=== PATIENT | male | born 1975 | race Hispanic/Latino ===

== ENCOUNTER 2018-02-23 08:22 | Observation (INO) | payer BC, SELFPAY ==
[2018-02-23 08:53] LABS: #Eosinphils 0.1 thou/uL (0.0-0.7); #Lymphocytes 1.4 thou/uL (1.20-3.40); #Monocytes 0.4 thou/uL (0.11-0.59); #Neutrophils 3.3 thou/uL (1.40-6.50); %Basophils 0.4 % (0.0-1.0); %Eosinophils 2.6 % (0.0-10.0); %Monocytes 7.6 % (0.0-10.0); %Neutrophils 62.5 % (42.0-75.0); Hemoglobin 10.9 g/dL (14.0-18.0); Mean Corpuscular HGB CONC 31.6 g/dL (32.0-36.0); Mean Corpuscular Volume 85.3 fL (78.0-98.0); Mean Platelet Volume 9.5 fL (7.4-10.4); Platelet Count 170 thou/uL (130-400); RBC Distribution Width 13.4 % (11.5-14.5); Red Blood Cell (RBC) Count 4.06 mill/uL (4.70-6.10); White Blood Cell (WBC) Count 5.3 thou/uL (4.8-10.8)
[2018-02-23 09:24] LABS: ALT (SGPT) 9 U/L (8-55); AST (SGOT) 11 U/L (5-34); Albumin 3.8 g/dL (3.5-5.0); Alkaline Phosphatase 60 U/L (40-150); Anion Gap 14 mmol/L (10-20); BUN (Urea Nitrogen) 11 mg/dL (8.9-20.6); Bilirubin, Total 0.6 mg/dL (0.2-1.2); CK (CPK) 129 U/L (30-200); Calc. Creatinine Clearance 0 mL/min (70-130); Calcium 9.4 mg/dL (7.8-10.44); Carbon Dioxide 26 mmol/L (22-29); Chloride 106 mmol/L (98-107); Estimated GFR-MDRD 85; Globulin 3.2 g/dL (2.4-3.5); Glucose 156 mg/dL (70-105); Potassium 3.3 mmol/L (3.5-5.1); Sodium 143 mmol/L (136-145)
[2018-02-23 09:52] LABS: CKMB 1.9 ng/mL (0-6.6); Troponin I 0.025 ng/mL (< 0.028)
--- NOTE | 2018-02-23 09:55 | RAD ---
CHEST ONE VIEW PORTABLE: History: 42-year-old male with history of dyspnea, weakness, lightheadedness and shortness of breath. FINDINGS: Monitor leads overlie the chest. Less than optimal inspiration with some bilateral vascular congestio n without overt edema, confluent pneumonia, or pleural effusion. IMPRESSION: Bilateral vascular congestion without acute process. No old studies. POS: [facility]
[2018-02-23] MEDS ORDERED: Furosemide 40 MG/4 ML VIAL ONE (10:26)
[2018-02-23 12:35] VITALS: BMI 33.7
[2018-02-23 12:45] LABS: Troponin I 0.036 ng/mL (< 0.028)
[2018-02-23] MEDS ORDERED: Acetaminophen 325 MG TAB PO PRN (12:55)
[2018-02-23] MEDS ORDERED: Ondansetron PF 4 MG/2 ML Vial IVP PRN (12:55)
[2018-02-23] MEDS ORDERED: Ondansetron ODT 4 MG TAB SL PRN (12:55)
[2018-02-23] MEDS ORDERED: Senokot S 8.6-50 MG TAB PO PRN (13:36)
[2018-02-23 15:10] LABS: Digoxin 0.24 ng/mL (0.8-2.0)
[2018-02-23 15:13] LABS: Troponin I 0.035 ng/mL (< 0.028)
--- NOTE | 2018-02-23 17:10 | HP ---
DATE OF ADMISSION: 02/23/2018 PRIMARY CARE PHYSICIAN: Razia Christine. TENSILE TESTER: Dr. Cuenca. CODE STATUS: FULL. CHIEF COMPLAINT: Weakness and lightheadedness that started yesterday. HISTORY OF PRESENT ILLNESS: Patient is a 42-year-old man who presents to the ED for weakness, lightheadedness and shortness of breath since yesterday morning. Reports he woke up yesterday, not feeling well. Reports symptoms worsened today. Reports dry cough. Denies any chest pain today. Denies any presyncope or syncope. Does report a history of congestive heart failure. An echocardiogram was performed in Dr. Cuenca's office last Friday. The patient had an ejection fraction of 10% at that time. The patient reports having CHF for the last 7 years from a possible viral illness. EKG in ED with a rate of 64 shows a left anterior fascicular block, nonspecific T-wave abnormalities, ventricular hypertrophy, QRS widening. The patient will be admitted for observation and further management. REVIEW OF SYSTEMS: CONSTITUTIONAL: The patient denies chills, denies fever. Reports weakness. Denies any weight loss. EYES: Denies eye pain, denies eye redness. Denies photophobia. ENT: Denies rhinorrhea, sinus pain. Denies sore throat or stridor. CARDIOVASCULAR: Denies chest pain and denies diaphoresis. Denies dyspnea on exertion. Denies edema. RESPIRATORY: Reports cough, nonproductive. Reports shortness of breath. Denies sputum. GASTROINTESTINAL: Denies abdominal pain, nausea, vomiting, constipation or diarrhea. MUSCULOSKELETAL: Denies arthralgias, back pain, fall injury, joint pain or redness. SKIN: Denies skin changes. Denies lesions. NEUROLOGIC: Denies focal weakness or symptoms. Denies headache, sensory changes. PSYCHIATRIC: Denies alcohol abuse, anxiety or depression. PHYSICAL EXAMINATION: VITAL SIGNS: Blood pressure 108/65, pulse is 60, respirations are 18, temperature 98.6, 99% on room air pulse ox. CONSTITUTIONAL: Alert and oriented x3. HEAD: Atraumatic, normocephalic. EYES: Eyelids are normal to inspection. Pupils are equally round and reactive to light. Extraocular muscles are intact. ENT: Pharynx exam is normal. Mucous membranes are moist. NECK: Normal range of motion. Trachea is midline. No JVD. RESPIRATORY: Breath sounds are clear. No rales, no rhonchi. CARDIOVASCULAR: Normal rate and rhythm. No bruits. Femoral pulses are normal. Pedal pulses are normal. ABDOMEN: Male. Bowel sounds are normal, no distention, no tenderness. BACK: No CVA tenderness. Normal range of motion. EXTREMITIES: Upper extremity range of motion is normal. Pulses are intact. Lower extremity, range of motion is normal. Sensation is intact. Pedal pulses normal, no edema is noted. NEUROLOGICAL: Patient is oriented to person, place and time. Speech is normal. Cranial nerves are intact. Deep tendon reflexes are normal. No focal deficits. No sensory deficits are noted. SKIN: Normal, dry, and normal in color. PAST MEDICAL HISTORY: Includes CHF for the last 7 years. He is followed by Dr. Cuenca in [place]. PAST SURGICAL HISTORY: Left wrist surgery several years ago with an external fixator. SOCIAL HISTORY: Patient is a former smoker, reports he quit 10 years ago. Drinks socially. Denies any drug use. ALLERGIES: None. MEDICATIONS: Carvedilol 25 mg daily, spironolactone 25 mg b.i.d., digoxin 125 mcg daily, Lasix 20-40 mg p.o. daily and Entresto 97/103 po b.i.d., aspirin 81 mg daily. FAMILY HISTORY: Reports mom is a diabetic. IMAGING DATA AND LABORATORY DATA: Chest x-ray reports mild congestive heart failure. 1st troponin is negative. D-dimer is negative at 0.39. CK is 129. Sodium 143, potassium 3.3, chloride 106, carbon dioxide 26, gap is 14, BUN is 11 , creatinine is 0.96, GFR is 85, glucose 156. BNP is 257. TSH 1.64. White blood cell count 5.3, hemoglobin is 10.9, hematocrit is 34.6, platelets 170. PLAN AND ASSESSMENT: Congestive heart failure exacerbation. We will diurese and order a Cardiology consult. Hospital course will depend on clinical findings. [facility]
[2018-02-23] MEDS: Famotidine 20 MG TAB PO SCH (20:52)
[2018-02-23] MEDS: Digoxin 0.125 MG TAB PO SCH (20:52)
[2018-02-23] MEDS: Sacubitril 49 MG/Valsartan 51 MG TABLET PO SCH (20:52)
[2018-02-23] MEDS: Spironolactone 25 MG TAB PO SCH (20:53)
[2018-02-23] MEDS ORDERED: Non-Formulary Item 1 EACH (Sacubitril/Valsartan [Entresto 97 Mg-103 Mg Tablet] 1 TAB) PO SCH (21:00)
[2018-02-23] MEDS ORDERED: Sacubitril 49 MG/Valsartan 51 MG TABLET PO SCH (21:00)
--- NOTE | 2018-02-24 04:21 | CON ---
DATE OF CONSULTATION: 02/23/2018 HISTORY OF PRESENT ILLNESS: This patient is a 42-year-old [place] male with longstanding history of cardiomyopathy. He has been followed by Dr. Cuenca for many years. He states he has a cardiomyopathy for approximately 7 years. His most recent echocardiogram was last week and ejection fraction was approximately 10% at that time. He now is admitted complaining of increased weakness, lightheadedness, and shortness of breath. He denies any chest discomfort. Since being admitted carvedilol 25 mg b.i.d. has been held because his pressure is low. PAST MEDICAL HISTORY: Congestive heart failure 7 years, followed by Dr. Cuenca. OPERATIONS: Left wrist surgery. MEDICATIONS: Carvedilol 25 mg b.i.d., spironolactone 25 b.i.d., digoxin 125 mcg b.i.d., Lasix 40 mg daily, Entresto 97/103 b.i.d., and aspirin 81 daily. ALLERGIES: None. SOCIAL HISTORY: He stopped smoking 10 years ago. He drinks socially. FAMILY HISTORY: Unremarkable. REVIEW OF SYSTEMS: Twelve-point review of systems otherwise unremarkable. PHYSICAL EXAMINATION: VITAL SIGNS: Blood pressure 104/66, pulse is 68. HEENT: PERRL. NECK: Supple. CHEST: Clear. CARDIAC: S1 and S2 are normal without any S3, S4 or murmurs. ABDOMEN: Normal bowel sounds, no tenderness. EXTREMITIES: Revealed no clubbing, cyanosis, or edema. NEUROLOGIC: Grossly intact. SKIN: Warm and dry. LABORATORY DATA: EKG reveals normal sinus rhythm with possible left ventricular hypertrophy. Chest x-ray reveals cardiomegaly with bilateral vascular congestion. Sodium 143, potassium 3.3, chloride 106, carbon dioxide 26 , BUN 11, creatinine 0.96. Troponin I 0.036, BNP 257.2. TSH is normal. Digoxin 0.24. IMPRESSION: 1. Acute on chronic systolic heart failure. 2. Symptoms of weakness and lightheadedness, probably related to hypotension. 3. History of hypertension. 4. Former smoker. PLAN: Echocardiogram will be requested from Dr. Cuenca's office as well as [facility] for documentation of the length of time that he has had a low ejection fraction. Consideration should be given to ICD placement. He may benefit from biventricular ICD with a widened QRS. With his current blood pressure, his usual dose of Entresto and carvedilol will be cut in half and his blood pressure followed closely. Certainly, his long-term prognosis is poor. [facility]TDD
[2018-02-24 05:19] LABS: #Eosinphils 0.1 thou/uL (0.0-0.7); #Lymphocytes 1.3 thou/uL (1.20-3.40); #Monocytes 0.5 thou/uL (0.11-0.59); #Neutrophils 5.5 thou/uL (1.40-6.50); %Basophils 0.1 % (0.0-1.0); %Eosinophils 1.2 % (0.0-10.0); %Lymphocytes 17.1 % (21.0-51.0); %Monocytes 6.9 % (0.0-10.0); %Neutrophils 74.7 % (42.0-75.0); Hemoglobin 10.1 g/dL (14.0-18.0); Mean Corpuscular Hemoglobin 27.3 pg (27.0-31.0); Mean Corpuscular Volume 85.3 fL (78.0-98.0); Mean Platelet Volume 8.9 fL (7.4-10.4); Platelet Count 152 thou/uL (130-400); RBC Distribution Width 13.5 % (11.5-14.5); White Blood Cell (WBC) Count 7.3 thou/uL (4.8-10.8)
[2018-02-24 05:21] LABS: ALT (SGPT) Less than 7 U/L (8-55); AST (SGOT) 9 U/L (5-34); Albumin 3.5 g/dL (3.5-5.0); Alkaline Phosphatase 56 U/L (40-150); Anion Gap 8 mmol/L (10-20); BUN (Urea Nitrogen) 18 mg/dL (8.9-20.6); Bilirubin, Total 0.5 mg/dL (0.2-1.2); Calc. Creatinine Clearance 130 mL/min (70-130); Carbon Dioxide 30 mmol/L (22-29); Cardiac Risk 4.9 (Less than 4.5); Chloride 107 mmol/L (98-107); Cholesterol 117 mg/dl (< 200 Desired); Estimated GFR-MDRD 79; Glucose 105 mg/dL (70-105); HDL Cholesterol 24 mg/dL (>60 Neg Risk); LDL Cholesterol, Calculated 66 mg/dL; Potassium 3.1 mmol/L (3.5-5.1); Protein, Total 6.5 g/dL (6.0-8.3); Sodium 142 mmol/L (136-145); Triglycerides 134 mg/dL (Less than 150)
[2018-02-24] MEDS: Digoxin 0.125 MG TAB PO SCH ×2 (12:53→20:23)
[2018-02-24] MEDS: Famotidine 20 MG TAB PO SCH ×2 (12:53→20:23)
[2018-02-24] MEDS: Carvedilol 6.25 MG TAB PO SCH ×2 (12:53→15:48)
[2018-02-24] MEDS: Aspirin 81 mg Enteric Coated Tablet PO SCH ×2 (12:53→15:47)
[2018-02-24] MEDS: Spironolactone 25 MG TAB PO SCH ×2 (12:54→20:24)
[2018-02-24] MEDS: Sacubitril 49 MG/Valsartan 51 MG TABLET PO SCH (14:00)
[2018-02-24] MEDS ORDERED: Potassium Chloride 20 MEQ TAB PO SCH (14:45)
--- NOTE | 2018-02-24 15:23 | PDOC.EVN ---
Event Note - Event Note Event Note: patient interviewed and examined, discussed with Kimberly Larson. agree with management and plan
[2018-02-24] MEDS: Furosemide 40 MG TAB PO SCH (15:48)
--- NOTE | 2018-02-24 15:50 | PDOC.PN ---
- Subjective Encounter Start Date: 02/24/18 Encounter Start Time: 14:00 Subjective: f/u with weakness, EF 10% - Objective Resuscitation Status: Resuscitation Status FULL:Full Resuscitation Vital Signs & Weight: Vital Signs (12 hours) Temp Pulse Resp BP Pulse Ox 02/24/18 12:53 57 L 02/24/18 11:14 98.4 F 57 L 20 91/57 L 96 02/24/18 06:58 98.0 F 63 20 96/58 L 95 02/24/18 04:23 98.5 F 79 16 100/61 98 Weight Weight 99.427 kg I&O: 02/23/18 02/24/18 02/25/18 06:59 06:59 06:59 Intake Total 660 Output Total 450 350 Balance 210 -350 Result Diagrams: 02/24/18 04:29 02/24/18 04:29 Phys Exam - Physical Examination HEENT: PERRLA, moist MMs Neck: no nodes, no JVD Respiratory: no wheezing, no rales, clear to auscultation bilateral Cardiovascular: RRR Gastrointestinal: soft, non-tender Musculoskeletal: no edema Neurological: non-focal, normal sensation Lymphatic: no nodes Psychiatric: normal affect, A&O x 3 Skin: no rash, normal turgor Dx/Plan (1) Heart failure Code(s): I50.9 - HEART FAILURE, UNSPECIFIED Status: Chronic Qualifiers: Heart failure type: diastolic Plan: EP consult - Plan cont current plan of care -: Dr. Billingsley saw patient yesterday, requested EP to be consulted -: Will hold BP meds as pressure has been on the lower side today -: Will await recommendation from Dr. Velazquez * .
--- NOTE | 2018-02-24 18:31 | CON ---
DATE OF CONSULTATION: 02/24/2018 ELECTROPHYSIOLOGY CONSULTATION REFERRING PHYSICIAN: Mic Billingsley M.D. REASON FOR CONSULTATION: Chronic systolic heart failure and dilated cardiomyopathy. STAGE DIRECTOR: Rinku Cuenca M.D. PRIMARY CARE PHYSICIAN: Razia Christine. HISTORY OF PRESENT ILLNESS: Mr. Rojas is a pleasant 42-year-old gentleman who presented to [facility] reporting weakness, lightheadedness and shortness of breath since the morning prior. He had woken up not feeling well and the symptoms progressively worsened until he ultimately went to the emergency room for further evaluation. He has a longstanding history of dilated cardiomyopathy and chronic systolic heart failure that was initially diagnosed in [address] Cuenca. Over time, his heart failure has worsened and he is currently in NYHA functional class 3 status. His treatment regimen for a long time has consisted of a diuretic, digoxin, Coreg and Entresto. He faithfully takes his medications, but has had progressive dyspnea and heart failure symptoms. He had an echocardiogram performed in 11/2016 that showed dilated cardiomyopathy with a reduced ejection fraction of less than 20% with a severely dilated left ventricle and severe global hypokinesis. He recently had a repeat echocardiogram by Dr. Cuenca's office and these records are also available in the chart revealing an even further reduced LV systolic function of approximately 10%. There is also severely dilated left atrium with a patent foramen ovale present and moderate mitral regurgitation. It has been a longstanding recommendation for him by the records that he undergo ICD placement. Currently, Mr. Rojas is feeling fairly well. He continues to experience some shortness of breath, but reports that this has lessened since he has been admitted for observation. He has been ambulating in his room and is tolerating this without difficulty. He denies any heart racing, palpitations, chest pain, pressure, syncope, near syncope, stroke or stroke like symptoms. REVIEW OF SYSTEMS: Constitutional: Negative for fevers, chills or unintentional weight loss. Positive for some fatigue. Cardiovascular: Negative for chest pain or pressure, syncope, near syncope, stroke or stroke like symptoms, heart racing or palpitations. Also negative for lower extremity edema. Respiratory: Positive for chronic shortness of breath that is recently worsened, but now lessening. Negative for cough. Negative for chronic cough. Gastrointestinal: Negative for nausea, vomiting, diarrhea or blood in stool. Genitourinary: Negative for frequency, hesitancy or burning with urination. Neurologic: Negative for dizziness, headaches, paresthesias, tingling or focal weaknesses. PAST MEDICAL HISTORY: 1. Congestive systolic heart failure diagnosed in 08/2011. Echocardiogram on 11/2016 showed dilated cardiomyopathy and ejection fraction of less than 20%, last week documented at 10% by repeat echocardiogram. 2. Hyperlipidemia. 3. Hypertension. 4. Aortic regurgitation, mild to moderate. 5. Mitral regurgitation, moderate. 6. Pulmonary hypertension. 7. Iron deficiency anemia. FAMILY HISTORY: Negative for sudden cardiac or early onset coronary artery disease. SOCIAL HISTORY: , but has supportive family involved. History of tobacco habituation, but quit in 07/2011. Negative for alcohol or illicit drug use. ALLERGIES: DARIAN INHIBITORS cause cough, but no true medication allergies. HOME MEDICATIONS: Include Entresto 97/103 mg tablet 1 p.o. b.i.d., Coreg 25 mg p.o. b.i.d., digoxin 250 mcg half a tab p.o. b.i.d., furosemide 40 mg 1 tab p.o. daily, spironolactone 25 mg p.o. daily, aspirin 81 mg p.o. daily, ferrous sulfate 325 mg p.o. daily, magnesium oxide 400 mg p.o. daily. PHYSICAL EXAMINATION: VITAL SIGNS: Most recent vital signs, temperature 98.4, pulse 63, blood pressure 96/58, respirations 20, oxygen is 95% on room air. GENERAL: This is a well-appearing, well-groomed gentleman, in no apparent distress. He is resting comfortably in bed. Speech is clear. His affect is appropriate. He is normocephalic, atraumatic. Sclerae are anicteric. EOMs are intact. Oral mucosa is moist and pink. NECK: Supple without jugular venous distention. Thyroid is not palpable. CHEST: Clear to auscultation bilaterally without wheezes, crackles or rhonchi. CARDIOVASCULAR: His heart rate is regularly regular with a crisp S1, S2. There is an S3 gallop noted. PMI is minimally palpable. ABDOMEN: Soft, nontender without palpable masses and hepatojugular reflux is negative. EXTREMITIES: Warm and dry to touch without clubbing, cyanosis or edema. NEUROLOGIC: Grossly intact with cranial nerves II-XII and exam is nonfocal. Gait was not assessed. DATABASE: Recent laboratory, hematology is reviewed and unremarkable. Chemistry, potassium 3.1, creatinine 1.03. AST and ALT are within normal limits. BNP is 257 on the date of admission. TSH 1.6. Telemetry and EKGs were all personally reviewed and reflect sinus rhythm with left anterior fascicular block and frequent PVCs and occasional PACs. QRS is approximately 140 milliseconds in duration. A 12-lead upon admission showed normal sinus rhythm at a rate of 64 beats per minute and a QRS of 125 milliseconds. No QTC prolongation. Echocardiogram report received, performed 02/17/2018, 1. Severely dilated left atrium. 2. Patent foramen ovale present. 3. Severely dilated left ventricle with marked global hypokinesis. 4. Moderate mitral regurgitation, ejection fraction 10%, pulmonary artery pressure 38 mmHg. Diastolic inflow pattern consistent with restrictive filling. IMPRESSION: 1. Longstanding chronic congestive systolic heart failure, dilated cardiomyopathy diagnosed in 2011 despite optimal medical management. 2. Shortness of breath. 3. Left anterior fascicular block. 4. Hypokalemia. RECOMMENDATIONS: It has been a long discussion with Mr. Rojas and his family present regarding heart failure and the purposes of the ICD. His cardiomyopathy has been longstanding since 2011. He is faithful with his medications and we now see even worsening ejection fraction in spite of optimal medical management. On top of that, we see left anterior fascicular block. At this point, my recommendation is to move forward with a biventricular ICD implantation during his hospital stay if possible. Risks associated with ICD implant include pain, bruising, swelling, infection at the implant site, pneumothorax, damage to the blood vessel, perforation of the heart, pericardial effusion, need for a chest tube insertion or pericardiocentesis. The patient voices understanding and wishes to move forward with device implant at the earliest convenience. Anticipate likely tomorrow for device implantation. We will keep him n.p.o. after midnight. All questions were answered. [facility]
[2018-02-24] MEDS: Sacubitril 24.5 MG/Valsartan 25.5 MG TABLET PO SCH (20:32)
[2018-02-25 04:25] LABS: #Eosinphils 0.1 thou/uL (0.0-0.7); #Lymphocytes 1.4 thou/uL (1.20-3.40); #Monocytes 0.4 thou/uL (0.11-0.59); #Neutrophils 2.9 thou/uL (1.40-6.50); %Basophils 0.1 % (0.0-1.0); %Eosinophils 2.7 % (0.0-10.0); %Lymphocytes 28.5 % (21.0-51.0); %Neutrophils 59.8 % (42.0-75.0); Hemoglobin 9.6 g/dL (14.0-18.0); Mean Corpuscular HGB CONC 30.8 g/dL (32.0-36.0); Mean Corpuscular Hemoglobin 26.4 pg (27.0-31.0); Mean Corpuscular Volume 85.6 fL (78.0-98.0); Mean Platelet Volume 9.2 fL (7.4-10.4); Platelet Count 148 thou/uL (130-400); RBC Distribution Width 13.6 % (11.5-14.5); Red Blood Cell (RBC) Count 3.64 mill/uL (4.70-6.10); White Blood Cell (WBC) Count 4.9 thou/uL (4.8-10.8)
[2018-02-25 04:51] LABS: ALT (SGPT) Less than 7 U/L (8-55); AST (SGOT) 7 U/L (5-34); Albumin 3.4 g/dL (3.5-5.0); Alkaline Phosphatase 54 U/L (40-150); Anion Gap 10 mmol/L (10-20); BUN (Urea Nitrogen) 20 mg/dL (8.9-20.6); Bilirubin, Total 0.9 mg/dL (0.2-1.2); Calc. Creatinine Clearance 123 mL/min (70-130); Calcium 8.9 mg/dL (7.8-10.44); Carbon Dioxide 27 mmol/L (22-29); Chloride 108 mmol/L (98-107); Estimated GFR-MDRD 75; Glucose 88 mg/dL (70-105); Potassium 3.3 mmol/L (3.5-5.1); Protein, Total 6.4 g/dL (6.0-8.3); Sodium 142 mmol/L (136-145)
[2018-02-25] MEDS: Digoxin 0.125 MG TAB PO SCH ×2 (08:37→20:23)
[2018-02-25] MEDS: Famotidine 20 MG TAB PO SCH ×2 (08:37→20:22)
[2018-02-25] MEDS: Furosemide 40 MG TAB PO SCH (08:38)
[2018-02-25] MEDS: Sacubitril 24.5 MG/Valsartan 25.5 MG TABLET PO SCH ×2 (08:38→20:22)
[2018-02-25] MEDS: Spironolactone 25 MG TAB PO SCH ×2 (08:38→20:23)
[2018-02-25] MEDS: Carvedilol 6.25 MG TAB PO SCH ×2 (08:38→18:17)
[2018-02-25] MEDS: Aspirin 81 mg Enteric Coated Tablet PO SCH (08:38)
--- NOTE | 2018-02-25 09:07 | PDOC.PN ---
- Subjective Encounter Start Date: 02/25/18 Encounter Start Time: 08:30 Subjective: f/u of worsening CHF, possible ICD placement - Objective Resuscitation Status: Resuscitation Status FULL:Full Resuscitation Vital Signs & Weight: Vital Signs (12 hours) Temp Pulse Resp BP BP BP Pulse Ox 02/25/18 08:38 116/56 L 02/25/18 08:37 66 02/25/18 07:16 98.3 F 66 16 116/56 L 95 02/25/18 03:58 98.3 F 71 15 94/61 94 L 02/24/18 23:36 98.5 F 60 21 H 102/61 96 Weight Weight 98.928 kg I&O: 02/24/18 02/25/18 02/26/18 06:59 06:59 06:59 Intake Total 660 1200 Output Total 450 350 Balance 210 850 Result Diagrams: 02/25/18 03:58 02/25/18 03:58 Phys Exam - Physical Examination Constitutional: NAD HEENT: PERRLA, moist MMs Neck: no nodes, no JVD, full ROM Respiratory: no wheezing, no rales, no rhonchi, clear to auscultation bilateral Cardiovascular: RRR, no significant murmur Gastrointestinal: soft, non-tender, no distention Musculoskeletal: no edema, pulses present Neurological: non-focal, normal sensation, moves all 4 limbs Lymphatic: no nodes Psychiatric: normal affect, A&O x 3 Skin: no rash, normal turgor, cap refill <2 seconds Dx/Plan (1) Heart failure Code(s): I50.9 - HEART FAILURE, UNSPECIFIED Status: Chronic Qualifiers: Heart failure type: diastolic - Plan -: Dr. Velazquez will take to Assisted Sales Representative for ICD placement today -: Will most likely keep overnight after placement -: Will continue to follow * .
[2018-02-25] MEDS ORDERED: PROPOFOL 200 MG/20 ML VIAL ONE (09:28)
[2018-02-25] MEDS ORDERED: Lidocaine 1% PF 5 ML VIAL ONE (09:28)
[2018-02-25] MEDS ORDERED: Ondansetron PF 4 MG/2 ML Vial ONE (09:28)
[2018-02-25] MEDS ORDERED: PHENYLEPHRINE-NS 100 MCG/ML 10 ML SYRINGE ONE (09:28)
[2018-02-25] MEDS ORDERED: Iopamidol 370 76% 50 ML VIAL FS ONE (10:44)
[2018-02-25] MEDS ORDERED: Lidocaine 1% (PF) 30 ML VIAL ONE (12:12)
[2018-02-25] MEDS ORDERED: CEFAZOLIN 2 GM/50 ML BAG ONE (12:12)
[2018-02-25] MEDS ORDERED: Midazolam HCl 2 mg/2 ml Vial ONE ×2 (14:46→16:38)
[2018-02-25] MEDS ORDERED: Fentanyl 100 MCG/2 ML VIAL ONE ×2 (14:51→16:17)
[2018-02-25] MEDS ORDERED: PROPOFOL 20 ML ONE (16:54)
[2018-02-25] MEDS ORDERED: Acetaminophen/Codeine 30-300mg Tablet PO PRN (18:00)
[2018-02-25] MEDS: Acetaminophen/Codeine 30-300mg Tablet PO PRN (23:01)
[2018-02-26 04:23] LABS: #Basophils 0.1 thou/uL (0.0-0.2); #Eosinphils 0.2 thou/uL (0.0-0.7); #Lymphocytes 0.8 thou/uL (1.20-3.40); #Monocytes 0.6 thou/uL (0.11-0.59); #Neutrophils 6.6 thou/uL (1.40-6.50); %Basophils 0.7 % (0.0-1.0); %Eosinophils 2.3 % (0.0-10.0); %Monocytes 7.6 % (0.0-10.0); %Neutrophils 79.4 % (42.0-75.0); Hemoglobin 10.5 g/dL (14.0-18.0); Mean Corpuscular HGB CONC 31.9 g/dL (32.0-36.0); Mean Corpuscular Hemoglobin 27.5 pg (27.0-31.0); Mean Corpuscular Volume 86.2 fL (78.0-98.0); Mean Platelet Volume 9.4 fL (7.4-10.4); Platelet Count 149 thou/uL (130-400); RBC Distribution Width 13.4 % (11.5-14.5); Red Blood Cell (RBC) Count 3.81 mill/uL (4.70-6.10); White Blood Cell (WBC) Count 8.3 thou/uL (4.8-10.8)
[2018-02-26] MEDS: Acetaminophen/Codeine 30-300mg Tablet PO PRN (04:36)
[2018-02-26 04:54] LABS: ALT (SGPT) Less than 7 U/L (8-55); AST (SGOT) 10 U/L (5-34); Albumin 3.7 g/dL (3.5-5.0); Alkaline Phosphatase 58 U/L (40-150); Anion Gap 14 mmol/L (10-20); BUN (Urea Nitrogen) 16 mg/dL (8.9-20.6); Bilirubin, Total 0.8 mg/dL (0.2-1.2); Calc. Creatinine Clearance 139 mL/min (70-130); Calcium 9.4 mg/dL (7.8-10.44); Carbon Dioxide 24 mmol/L (22-29); Chloride 109 mmol/L (98-107); Estimated GFR-MDRD 85; Globulin 3.2 g/dL (2.4-3.5); Glucose 102 mg/dL (70-105); Potassium 3.6 mmol/L (3.5-5.1); Protein, Total 6.9 g/dL (6.0-8.3); Sodium 143 mmol/L (136-145)
[2018-02-26] MEDS: Cephalexin 250 MG CAP PO SCH ×2 (05:28→12:15)
--- NOTE | 2018-02-26 08:08 | RAD ---
SINGLE VIEW OF THE CHEST: COMPARISON: 02/23/2018. HISTORY: Pacemaker placement. FINDINGS: A single view of the chest shows an enlarged cardiomediastinal silhouette. There is a left subclavia n pacemaker with its leads in the right atrium, right ventricle, and coronary sinus. There is no brianne dence of pneumothorax. IMPRESSION: 1. Status post pacemaker placement without evidence of complication. 2. Cardiomegaly. POS: C
[2018-02-26] MEDS: Famotidine 20 MG TAB PO SCH (09:28)
[2018-02-26] MEDS: Aspirin 81 mg Enteric Coated Tablet PO SCH (09:29)
[2018-02-26] MEDS: Digoxin 0.125 MG TAB PO SCH (09:29)
[2018-02-26] MEDS: Furosemide 40 MG TAB PO SCH (09:29)
[2018-02-26] MEDS: Spironolactone 25 MG TAB PO SCH (09:30)
[2018-02-26] MEDS: Sacubitril 24.5 MG/Valsartan 25.5 MG TABLET PO SCH (09:30)
[2018-02-26] MEDS: Carvedilol 6.25 MG TAB PO SCH (09:30)
[2018-02-26 11:57] VITALS: TEMP 98.4
--- NOTE | 2018-02-26 14:54 | PDOC.CTH ---
Cardiology Progress Note - Subjective EP progress note: Doing well since ICD implant yesterday. Minimal pain or swelling at incision. Preparing for DC home. No complaints today - Objective Vital Signs Temp Pulse Resp BP BP Pulse Ox 02/26/18 11:08 98.4 F 65 20 94/54 L 95 02/26/18 09:30 109/77 02/26/18 09:29 67 02/26/18 07:10 98.6 F 78 18 109/77 96 02/26/18 03:48 98.4 F 60 18 105/58 L 93 L Weight 219 lb 1.6 oz 02/25/18 02/26/18 02/27/18 06:59 06:59 06:59 Intake Total 1200 870 410 Output Total 350 Balance 850 870 410 - Physical Examination General/Neuro: alert & oriented x3, NAD Neck: carotid US brisk, no JVD present Lungs: unlabored respirations Heart: RRR Abdomen: NT/ND, soft - Telemetry Telemetry Rhythm: SR with PVC - Labs Result Diagrams: 02/26/18 03:58 02/26/18 03:58 Troponin/CKMB CK-MB (CK-2) 1.9 ng/mL (0-6.6) 02/23/18 08:41 Troponin I 0.035 ng/mL (< 0.028) H 02/23/18 14:43 - Assessment/Plan 1. Chronic systolic heart failure -worsening EF 10% 2. BiV ICD implant 02/25/2018 -Med[employer]onic Viva s Quad -Stable check this AM 3. 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 Continue betablocker 4. Shortness of breath -acute issues resolved, back to baseline CXR stable this am. No pneumothorax. OK to DC by EP. Keflex 500mg QID x 7 days post device implant. Wound/device check with [facility] in 10-14 days.
[2018-02-26 15:00] VITALS: BP 100/58
--- NOTE | 2018-02-27 03:15 | DIS ---
DATE OF ADMISSION: 02/23/2018 DATE OF DISCHARGE: 02/26/2018 PRIMARY CARE PHYSICIAN: Dr. Christine. CONSULTANTS: Dr. Billingsley and Dr. Velazquez. PROCEDURE: The patient had biventricular implantable cardioverter-defibrillator implant on 8. DISCHARGE DIAGNOSES: 1. Acute on chronic systolic heart failure. 2. History of hypertension. 3. Former smoker. REVIEW OF SYSTEMS: A 12-point review of systems otherwise unremarkable. PHYSICAL EXAMINATION: VITAL SIGNS: Temperature 98.4, pulse is 60, respirations are 18, blood pressure is 105/58, pulse ox is 93 on room air. CONSTITUTIONAL: Denies chills or fever. Reports some residual weakness. Denies any weight loss. EYES: Denies any eye pain. Eyelids are normal to inspection. Pupils are equally round and reactive to light. Extraocular muscles are intact. HEAD: Atraumatic, normocephalic. ENT: Mucous membranes are moist. NECK: Normal range of motion. Trachea is midline. No JVD. RESPIRATORY: Breath sounds are clear. No rales or rhonchi. CARDIOVASCULAR: Normal rate and rhythm. Femoral pulses are normal. Pedal pulses are normal. ABDOMEN: Bowel sounds are normal. No distention, no tenderness. BACK: Normal range of motion. No CVA tenderness. EXTREMITIES: Normal range of motion and strength x4. NEUROLOGIC: The patient is oriented to person, place, and time. Speech is normal. No focal or sens ory deficits are noted. SKIN: Dry, normal in color. HOSPITAL COURSE: Mr. Rojas is a 42-year-old man who presented to the ED on 02/23/2018 for weakness , lightheadedness, and shortness of breath. Reports symptoms ongoing but worse the morning before ad mission. He reports he woke up the day before admission, not feeling well. Symptoms have worsened. He has a dry cough. Denies any chest pain. Denies any presyncope or syncope. He does have a long history of congestive heart failure, which has been progressive and echocardiogram was performed in Kimberly Cuenca's office, his primary mining machinery assembler, last Friday. The patient had an ejection fraction of 10% at that time. He reports congestive heart failure started 7 years ago from a possible viral illn ess. EKG in the ER was a rate of 64 beats per minute with a left anterior fascicular block, nonspeci fic T-wave abnormalities, ventricular hypertrophy, QRS widening. He consulted Dr. Billingsley who asked Dr. Velazquez to do a consult. Dr. Velazquez recommended an ICD placement, which was performed on 02/25/2018. The patient did well overnight after the ICD placement. Dr. Velazquez felt comfortable sending him home , so he was sent home with a prescription for Keflex. Dr. Billingsley recommended decreasing his hypert ensive medicines as they believe this might be the cause for some of his weakness and hypotension whi le in the hospital. HOME MEDICATIONS: As follows, aspirin 81 mg p.o. daily, digoxin 0.125 mg p.o. b.i.d., furosemide 40 mg p.o. daily, spironolactone 25 mg b.i.d. Coreg was changed to 6.25 mg b.i.d., Entresto was changed to 24.5-25.5 mg p.o. b.i.d., Keflex 500 mg q.6 hours x10 days was added to his home regimen. ALLERGIES: No known allergies. CONDITION: Stable. REFERRAL: Patient should make an appointment to see Dr. Christine within the next week. Follow up with Dr. Cuenca, his mining machinery assembler, within the next 2-3 days. Follow up within the next 10-[address] Arianne Velazquez for followup on the ICD placement.
== END 2018-02-26 15:37 | disposition home or self-care (01) ==
LOC: ERS 08:22 → 2SW 12:17
PROVIDERS: ADMIT Internal Medicine; ATTEND Internal Medicine
PROC: 0JH609Z Insertion of Cardiac Resynchronization Defibrillator Pulse Generator into Chest Subcutaneous Tissue and Fascia, Open Approach (ICD-10-PCS; principal; 2018-02-25)
PROC: 02H63KZ Insertion of Defibrillator Lead into Right Atrium, Percutaneous Approach (ICD-10-PCS; 2018-02-25)
PROC: 02HK3KZ Insertion of Defibrillator Lead into Right Ventricle, Percutaneous Approach (ICD-10-PCS; 2018-02-25)
PROC: 02H43KZ Insertion of Defibrillator Lead into Coronary Vein, Percutaneous Approach (ICD-10-PCS; 2018-02-25)
DX: I11.0 Hypertensive heart disease with heart failure (principal); I50.23 Acute on chronic systolic (congestive) heart failure; I42.0 Dilated cardiomyopathy; I27.20 Pulmonary hypertension, unspecified; E78.5 Hyperlipidemia, unspecified; I08.0 Rheumatic disorders of both mitral and aortic valves; D50.9 Iron deficiency anemia, unspecified; Z87.891 Personal history of nicotine dependence; Z79.82 Long term (current) use of aspirin; Z79.899 Other long term (current) drug therapy
CPT/HCPCS: 33225; 33230; 36005; 36415; 71045; 75820; 80053; 80061; 80162; 82550; 82553; 83880; 84443; 84484; 85025; 85379; 90471; 90686; 90732; 93005; 93640; 93798; 94760; 96365; 96366; 96374; 96375; C1730; C1777; C1882; C1898; C1900; G0008; G0009; G0378; J0690; J1940; J2001; J2250; J2405; J2704; J3010; J3490

== ENCOUNTER 2018-04-08 10:10 | Outpatient (CLI) | payer OTHER, SELFPAY ==
[2018-04-08 11:24] LABS: Hemoglobin 10.5 g/dL (14.0-18.0); Mean Corpuscular HGB CONC 32.5 g/dL (32.0-36.0); Mean Corpuscular Hemoglobin 27.3 pg (27.0-31.0); Mean Corpuscular Volume 83.9 fL (78.0-98.0); Platelet Count 156 thou/uL (130-400); Prothrombin Time 13.5 SEC (12.0-14.7); RBC Distribution Width 14.3 % (11.5-14.5); Red Blood Cell (RBC) Count 3.86 mill/uL (4.70-6.10); White Blood Cell (WBC) Count 5.8 thou/uL (4.8-10.8)
[2018-04-08 11:35] LABS: Anion Gap 11 mmol/L (10-20); BUN (Urea Nitrogen) 17 mg/dL (8.9-20.6); Calc. Creatinine Clearance 0 mL/min (70-130); Calcium 9.5 mg/dL (7.8-10.44); Carbon Dioxide 28 mmol/L (22-29); Chloride 106 mmol/L (98-107); Estimated GFR-MDRD 69; Glucose 114 mg/dL (70-105); Potassium 4.1 mmol/L (3.5-5.1); Sodium 141 mmol/L (136-145)
--- NOTE | 2018-04-08 17:58 | EKG ---
Test Reason : Blood Pressure : / mmHG Vent. Rate : 070 BPM Atrial Rate : 070 BPM P-R Int : 140 ms QRS Dur : 114 ms QT Int : 400 ms P-R-T Axes : 059 058 028 degrees QTc Int : 432 ms Normal sinus rhythm Incomplete left bundle branch block Nonspecific ST and T wave abnormality Abnormal ECG Confirmed by ROYAL OZUNA ([id number]) on 04/08/2018 5:58:22 PM Referred By: JOS Confirmed By:ROYAL OZUNA
== END 2018-04-08 10:11 | disposition home or self-care (01) ==
LOC: LABBT 10:10
PROVIDERS: ATTEND Internal Medicine Cardiovascular Disease
DX: Z01.818 Encounter for other preprocedural examination (principal); I50.9 Heart failure, unspecified
CPT/HCPCS: 80048; 85027; 85610; 85730; 93005; 93010

== ENCOUNTER 2018-04-16 05:54 | Day surgery (SDC) | payer OTHER, SELFPAY ==
[2018-04-08 10:23] VITALS: BMI 32.6
[2018-04-16] MEDS ORDERED: CEFAZOLIN 2 GM/50 ML BAG ONE (07:12)
[2018-04-16] MEDS ORDERED: KETAMINE 100 MG/ML (5ML VIAL) ONE (08:08)
[2018-04-16] MEDS ORDERED: Midazolam HCl 2 mg/2 ml Vial ONE (09:11)
--- NOTE | 2018-04-16 12:57 | RAD ---
CHEST 1 VIEW: HISTORY: Lead revision. COMPARISON: Radiograph 02/26/2015. FINDINGS: Three-lead AICD/pacer is present. Heart size is enlarged. Mild pulmonary venous congestion. No pne umothorax. IMPRESSION: Uncomplicated lead revision. POS: [facility]
[2018-04-16] MEDS ORDERED: Iopamidol 370 76% 50 ML VIAL FS ONE (16:48)
[2018-04-16] MEDS ORDERED: PROPOFOL 200 MG/20 ML VIAL ONE (21:07)
== END 2018-04-16 14:45 | disposition home or self-care (01) ==
LOC: CCL 05:54
PROVIDERS: ATTEND Internal Medicine Cardiovascular Disease
PROC: 02PA3MZ Removal of Cardiac Lead from Heart, Percutaneous Approach (ICD-10-PCS; principal; 2018-04-16)
PROC: 02H63JZ Insertion of Pacemaker Lead into Right Atrium, Percutaneous Approach (ICD-10-PCS; principal; 2018-04-16)
DX: T82.120A Displacement of cardiac electrode, initial encounter (principal); I44.7 Left bundle-branch block, unspecified; I11.0 Hypertensive heart disease with heart failure; I50.22 Chronic systolic (congestive) heart failure; I27.20 Pulmonary hypertension, unspecified; I08.0 Rheumatic disorders of both mitral and aortic valves; I42.0 Dilated cardiomyopathy; E78.5 Hyperlipidemia, unspecified; Z79.82 Long term (current) use of aspirin; Z79.899 Other long term (current) drug therapy; Z88.8 Allergy status to other drugs, medicaments and biological substances
CPT/HCPCS: 33215; 33216; 33244; 36005; 71045; 75820; 93642; C1898; J2250; J2704; J3490

== ENCOUNTER 2018-07-03 23:14 | Observation (INO) | payer OTHER ==
[2018-07-03 23:56] LABS: Bicarbonate (HCO3v) 22.4 mmol/L (22.0-28.0); CO2 Tension (PvCO2) 35.8 mmHg (40.0-50.0); Calcium, Ionized 1.16 mmol/L (See Comments:); Chloride 109 mmol/L (98-107); Hemoglobin - Calc 9.9 g/dL (14.0-18.0); O2 Tension (PvO2) 40.8 mmHg (35.0-45.0); Potassium 3.3 mmol/L (3.5-5.1); Sodium 142 mmol/L (138-145); T. Carbon Dioxide 23.5 mmol/L (22.0-28.0); pH (Venous) 7.404 (7.320-7.430); vO2 Saturation-calc 76.6 % (60.0-85.0)
[2018-07-04 00:05] LABS: #Eosinphils 0.1 thou/uL (0.0-0.7); #Lymphocytes 1.6 thou/uL (1.20-3.40); #Monocytes 0.6 thou/uL (0.11-0.59); #Neutrophils 6.4 thou/uL (1.40-6.50); %Basophils 0.5 % (0.0-1.0); %Eosinophils 1.2 % (0.0-10.0); %Lymphocytes 17.9 % (21.0-51.0); %Monocytes 6.8 % (0.0-10.0); %Neutrophils 73.7 % (42.0-75.0); Hemoglobin 8.6 g/dL (14.0-18.0); Mean Corpuscular HGB CONC 30.5 g/dL (32.0-36.0); Mean Corpuscular Hemoglobin 23.9 pg (27.0-31.0); Mean Corpuscular Volume 78.4 fL (78.0-98.0); Platelet Count 197 thou/uL (130-400); RBC Distribution Width 15.5 % (11.5-14.5); Red Blood Cell (RBC) Count 3.58 mill/uL (4.70-6.10); White Blood Cell (WBC) Count 8.7 thou/uL (4.8-10.8)
[2018-07-04 00:25] LABS: ALT (SGPT) 21 U/L (8-55); AST (SGOT) 18 U/L (5-34); Albumin 3.9 g/dL (3.5-5.0); Alkaline Phosphatase 76 U/L (40-150); Anion Gap 14 mmol/L (10-20); BUN (Urea Nitrogen) 24 mg/dL (8.9-20.6); Calc. Creatinine Clearance 0 mL/min (70-130); Carbon Dioxide 21 mmol/L (22-29); Chloride 108 mmol/L (98-107); Estimated GFR-MDRD 55; Globulin 2.8 g/dL (2.4-3.5); Glucose 113 mg/dL (70-105); Lipase 23 U/L (8-78); Potassium 3.6 mmol/L (3.5-5.1); Protein, Total 6.7 g/dL (6.0-8.3); Sodium 139 mmol/L (136-145)
[2018-07-04] MEDS ORDERED: Furosemide 40 MG/4 ML VIAL ONE (01:33)
[2018-07-04 04:33] LABS: Bilirubin Negative (Negative); Blood, Urine Trace (Negative); Clarity CLEAR (Clear); Glucose, Urine (Dipstick) Negative (Negative); Leukocyte Negative (Negative); Nitrite Negative (Negative); Protein, Urine (Dipstick) Negative (Neg-Trace); Urobilinogen 0.2 mg/dL (0.2-1.0)
[2018-07-04 04:34] LABS: Bacteria/HPF None Seen HPF (None Seen); Hyaline Casts/LPF 0-3 HYALINE CAST LPF (0-3 Hyaline); Pathc Cast-AUWi Flag 0.13 (0-2.49); RBC/HPF 0-3 HPF (0-3); Squamous Epithelial None Seen HPF (0-3); WBC/HPF None Seen HPF (0-3)
[2018-07-04 04:36] LABS: Digoxin Less than 0.15 ng/mL (0.8-2.0)
[2018-07-04] MEDS ORDERED: Acetaminophen 325 MG TAB PO PRN (05:00)
[2018-07-04 05:39] LABS: CKMB 1.2 ng/mL (0-6.6)
[2018-07-04 06:24] VITALS: BMI 34.0
--- NOTE | 2018-07-04 06:38 | HP ---
CHIEF COMPLAINT: Shortness of breath. HISTORY OF PRESENT ILLNESS: This patient is a 43-year-old male who has a longstanding history of severe cardiomyopathy, presumably due to a viral illness. This has been present going back to around 2010 and 2011. The patient's most recent echocardiogram revealed ejection fraction of about 10%. The patient is followed primarily by Dr. Cuenca. He is on Lasix and spironolactone, takes that routinely. He also takes digoxin, but apparently has been out of that for time. He does follow a careful diet and does not use salt and watches his sodium. He has been taking his diuretics, but reports that there are times when they tend to work less well, over the last few days that has been the case and he developed some increasing shortness of breath. On this day, the patient got up to take shower and simply leaning his head back to rinse his hair, he felt somewhat lightheaded and felt like that was time that he needed to come into the emergency room for evaluation. Currently, the patient reports that he is feeling somewhat better after having received Lasix in the emergency department, he has received 40 mg IV and DuoNeb as well. PAST MEDICAL HISTORY: As noted. The patient has a history of congestive heart failure for about 7 years with EF of around 10%. He had a left bundle branch block and had placement of a biventricular pacer defibrillator in February of 2018. He subsequently sneezed and had some type of wire detachment, subsequently had to have a revision of the wire. The patient notably has relatively low blood pressure, sometimes limiting his medications. PAST SURGICAL HISTORY: Left wrist surgery, requiring external fixator several years ago. FAMILY HISTORY: Diabetes in his mother. SOCIAL HISTORY: Former smoker, quit over 10 years ago. Drinks socially. Denies drug use. ALLERGIES: NONE. MEDICATIONS: 1. Coreg 25 mg p.o. b.i.d. 2. Spironolactone 25 mg b.i.d. 3. Digoxin 0.125 p.o. b.i.d. 4. Aspirin 81 mg daily. 5. Lasix, that he takes 20 to 40 mg daily. PHYSICAL EXAMINATION: VITAL SIGNS: BP 91/66, pulse 90, respirations 20, O2 saturation 97% on room air. GENERAL APPEARANCE: Age-appropriate male. He is in no distress. He is awake, alert, oriented, pleasant, and cooperative. HEART: Regular with occasional ectopy. He has a 2/6 murmur, that is systolic heard in the upper sternal border, but has a diastolic component at the apex. LUNGS: Clear to auscultation bilaterally with good chest wall expansion and air exchange. ABDOMEN: Soft, nontender, and nondistended with positive bowel sounds. No masses. No organomegaly. EXTREMITIES: Have no edema. No cyanosis or clubbing. SKIN: Warm and dry. NEUROLOGIC: Grossly intact with no focal deficits. PSYCHIATRIC: The patient has normal affect and behavior. LABORATORY DATA: White count 8.7, hemoglobin 8.6, platelets 197. D-dimer is 1.44. PH on VBG 7.4, pCO2 of 36, pO2 of 40.8. Sodium 136, potassium 3.6, chloride 108, CO2 is 21, anion gap 14, BUN 24, creatinine 1.4, glucose 113. BNP 1321. Urinalysis negative. Digoxin less than 0.15. Flu screen negative. Chest x-ray shows substantial cardiomyopathy with potentially some pulmonary edema. CTA of the chest per the ER provider's report was read as negative. I have evaluated this myself and do not see a substantial amount of pulmonary edema present. IMPRESSION AND PLAN: 1. Acute on chronic systolic congestive heart failure. The patient has severe cardiomyopathy, likely viral with an EF of 10%. He is on appropriate medications, cannot be too aggressive with his other medications because he runs relatively hypotensive. He has received Lasix in the emergency department and has responded well. We will keep in observation, continued to diurese to get him back to a more euvolemic state, and consider giving some p.r.n. Zaroxolyn at the time of discharge. 2. Acute renal insufficiency. The patient's baseline BUN and creatinine are normal, suspect due to the decompensated heart failure. We will continue to monitor with diuresis. 3. Anemia. The patient has chronic anemia, although his hemoglobin is lower than it has been on previous visits. Etiology is unclear. We will check anemia panel. Job ID: [id number]
--- NOTE | 2018-07-04 07:36 | RAD ---
AP VIEW CHEST: Date: 07/03/18 HISTORY: Shortness of breath. FINDINGS: Comparison made to previous exam from 04/16/18. AP view of chest demonstrates cardiomegaly. There is an intracardiac defibrillator. Pulmonary vascular congestion is seen. No evidence of effusions, pneumonia, or pneumothorax seen. IMPRESSION: Cardiomegaly and pulmonary vascular congestion. POS: [facility]
[2018-07-04 08:50] LABS: Anion Gap 13 mmol/L (10-20); BUN (Urea Nitrogen) 20 mg/dL (8.9-20.6); Calc. Creatinine Clearance 101 mL/min (70-130); Calcium 8.7 mg/dL (7.8-10.44); Carbon Dioxide 22 mmol/L (22-29); Chloride 109 mmol/L (98-107); Estimated GFR-MDRD 60; Glucose 99 mg/dL (70-105); Potassium 3.3 mmol/L (3.5-5.1); Sodium 141 mmol/L (136-145)
[2018-07-04] MEDS: Famotidine 20 MG TAB PO SCH ×2 (09:15→20:12)
[2018-07-04] MEDS: Aspirin 81 mg Enteric Coated Tablet PO SCH (09:15)
[2018-07-04] MEDS: Carvedilol 25 MG TAB PO SCH ×2 (09:15→17:48)
[2018-07-04] MEDS: Spironolactone 25 MG TAB PO SCH ×2 (09:15→17:48)
[2018-07-04] MEDS: Digoxin 0.125 MG TAB PO SCH ×2 (09:15→20:12)
[2018-07-04] MEDS ORDERED: Furosemide 40 MG/4 ML VIAL SLOW IVP SCH (10:15)
--- NOTE | 2018-07-04 10:24 | CT ---
PRELIMINARY REPORT/[facility]/EMERGENCY AFTER HOURS PROCEDURE: EXAM: CT Angiography Chest With Contrast EXAM DATE/TIME: 07/04/2018 2:51 AM CLINICAL HISTORY: 43 years old, male; Pain and signs and symptoms; Shortness of breath; Chest pain; Prior surgery; Jamila ent HX: PT states that yesterday they started to have some difficulty breathing and developed a cough // PT states their is pressure on their chest like there is something sitting on it// PT complains of difficulty breathing that is increased when lying flat. TECHNIQUE: Axial computed tomographic angiography images of the chest with intravenous contrast using CT angiogr aphy protocol. MIP reconstructed images were created and reviewed. COMPARISON: No relevant prior studies available. FINDINGS: Tubes, catheters and devices: Left subclavian transvenous biventricular pacemaker. Pulmonary arteries: No pulmonary emboli. Aorta: Normal. No aortic aneurysm. No aortic dissection. Lungs: Normal. No consolidation. No masses. Pleural space: Normal. No pneumothorax. No pleural effusion. Heart: Moderate four-chamber cardiac enlargement. Lymph nodes: Few small lymph nodes within the mediastinum, likely reactive. Bones/joints: Multilevel thoracic spine degenerative changes. Soft tissues: Unremarkable. IMPRESSION: No pulmonary emboli. Thank you for allowing us to participate in the care of your patient. Dictated and Authenticated by: Arnulfo Martinez MD 07/04/2018 3:48 AM Central Time ([place] & [place]) FINAL REPORT EMERGENCY AFTER HOURS CT ANGIOGRAM CHEST WITH 3D RENDERING: Date: 07/04/18 Time: 053 hours FINDINGS/IMPRESSION: Cardiomegaly with some scattered up to borderline size mediastinal lymph nodes. No CT evidence for ac vesta pulmonary embolism. Report in agreement with preliminary report given on-call by Leanna. POS: [facility]
[2018-07-04 11:13] LABS: Troponin I 0.075 ng/mL (< 0.028)
[2018-07-04] MEDS ORDERED: ISOVUE-370 76%-LOCM 1 ML ONE (12:51)
[2018-07-04] MEDS ORDERED: Metolazone 2.5 MG TAB PO SCH (16:45)
[2018-07-04] MEDS ORDERED: Potassium Chloride 20 MEQ TAB PO SCH (17:00)
[2018-07-04] MEDS: Furosemide 40 MG/4 ML VIAL SLOW IVP SCH (17:44)
--- NOTE | 2018-07-04 18:55 | PRG ---
DATE OF SERVICE: 07/04/2018 SUBJECTIVE: The patient is a very pleasant 43-year-old male with longstanding history of severe cardiomyopathy with last EF estimated at 10%, status post defibrillator placement, who presented with shortness of breath. Apparently, the patient had been out of his Lasix for several days and could not refill it. The patient has had 2 doses of IV Lasix, and feels much improved at this point, however, is not back to his baseline. He complains of cough and shortness of breath. He denies any chest pain. He denies any nausea or vomiting. His appetite is good. OBJECTIVE: VITAL SIGNS: Blood pressure 110/68, pulse is 90, and O2 saturation is 98% on room air. GENERAL: The patient is awake and alert, in no acute distress. NECK: No obvious JVD. No carotid bruits. Trachea is midline. CV: S1 and S2. Faint S3 gallop. No murmurs or rubs. LUNGS: Regular respiratory rate and pattern, overall clear, although I hear faint crackles at the bases. ABDOMEN: Soft, nontender. Positive bowel sounds. SKIN: Warm and dry. NEUROLOGIC: Cranial nerves 2 through 12 grossly intact. The patient is nonfocal. LABORATORY DATA: Sodium 141; potassium 3.3; chloride 101; creatinine 1.3, down from 1.4; estimated GFR 60; and glucose is 99. Troponin is indeterminate at 0.08 and 0.075. ASSESSMENT: 1. Acute on chronic systolic congestive heart failure exacerbation, improving. 2. Severe dilated cardiomyopathy with last ejection fraction estimated at 10%, status post automatic implantable cardioverter-defibrillator. 3. Hypertension. 4. Chronic renal insufficiency, likely secondary to cardiorenal syndrome, creatinine improving with diuresis. PLAN: The patient is not back to his baseline, and we will continue IV diuresis with addition of metolazone. He has mild hypokalemia, and I will replete his potassium and repeat BMP in the morning. He has been noncompliant with his Lasix and I suspect that this is the culprit. He has been counseled extensively on compliance with his medications and avenues, so that he does not run out of his medications. Upon talking to his primary administrative liaison, Dr. Rinku Cuenca, he has been referred to [place] for consideration for heart transplant and possible left ventricular assist device. Anticipate discharge tomorrow. Care discussed with Dr. Person, who agrees with above. Job ID: [id number] MTDD
[2018-07-04] MEDS ORDERED: Carvedilol 6.25 MG TAB PO SCH (19:00)
[2018-07-05 05:32] LABS: #Eosinphils 0.1 thou/uL (0.0-0.7); #Lymphocytes 1.5 thou/uL (1.20-3.40); #Monocytes 0.4 thou/uL (0.11-0.59); #Neutrophils 2.6 thou/uL (1.40-6.50); %Basophils 0.4 % (0.0-1.0); %Eosinophils 2.6 % (0.0-10.0); %Monocytes 8.5 % (0.0-10.0); %Neutrophils 56.5 % (42.0-75.0); Hemoglobin 7.8 g/dL (14.0-18.0); Mean Corpuscular Hemoglobin 24.2 pg (27.0-31.0); Mean Platelet Volume 10.5 fL (7.4-10.4); Platelet Count 157 thou/uL (130-400); RBC Distribution Width 15.8 % (11.5-14.5); Red Blood Cell (RBC) Count 3.23 mill/uL (4.70-6.10); White Blood Cell (WBC) Count 4.6 thou/uL (4.8-10.8)
[2018-07-05 05:57] LABS: Anion Gap 13 mmol/L (10-20); BUN (Urea Nitrogen) 21 mg/dL (8.9-20.6); Calc. Creatinine Clearance 103 mL/min (70-130); Calcium 8.8 mg/dL (7.8-10.44); Carbon Dioxide 23 mmol/L (22-29); Chloride 109 mmol/L (98-107); Estimated GFR-MDRD 61; Glucose 92 mg/dL (70-105); Potassium 3.4 mmol/L (3.5-5.1); Sodium 142 mmol/L (136-145)
[2018-07-05 05:58] LABS: Iron 14 ug/dL (65-175); Iron Binding Capacity, Total 415 mcg/dL (261-462)
[2018-07-05 06:20] LABS: Folate (Folic Acid) 12.7 ng/mL (7.0-31.4)
[2018-07-05] MEDS: Furosemide 40 MG/4 ML VIAL SLOW IVP SCH (06:23)
[2018-07-05] MEDS ORDERED: Metolazone 2.5 MG TAB PO SCH (08:30)
[2018-07-05 08:33] VITALS: BP 93/61; TEMP 98
[2018-07-05] MEDS: Digoxin 0.125 MG TAB PO SCH (09:58)
[2018-07-05] MEDS: Aspirin 81 mg Enteric Coated Tablet PO SCH (09:59)
[2018-07-05] MEDS: Famotidine 20 MG TAB PO SCH (09:59)
[2018-07-05] MEDS: Carvedilol 25 MG TAB PO SCH (10:03)
[2018-07-05] MEDS: Spironolactone 25 MG TAB PO SCH (10:03)
--- NOTE | 2018-07-05 21:39 | DIS ---
DATE OF ADMISSION: 07/04/2018 DATE OF DISCHARGE: 07/05/2018 ALLERGIES: NO KNOWN DRUG ALLERGIES. CHIEF COMPLAINT: Shortness of breath. FINAL DIAGNOSES: 1. Acute on chronic systolic congestive heart failure exacerbation, resolved. 2. Severe dilated cardiomyopathy with last ejection fraction estimated at 10%, status post automated implantable cardioverter-defibrillator. 3. Hypertension. 4. Chronic renal insufficiency, likely secondary to cardiorenal syndrome, creatinine improving throughout his hospitalization. 5. Anemia, likely secondary to bleeding hemorrhoids from 6 weeks ago, no active bleeding at this time. LABORATORY RESULTS: Sodium 142, potassium 3.4, chloride 109, BUN 21, creatinine 1.28, it was 1.41 on arrival. Vitamin B12 210, folate 12.7, iron 14, TIBC 415. Hemoglobin 8.6, white blood cell count 4.6, and platelets 157. IMAGING RESULTS: Chest x-ray, cardiomegaly and pulmonary vascular congestion. Chest and thorax CTA performed on 07/04/2018, cardiomegaly with some scattered up to borderline size mediastinal lymph nodes. No CT evidence of acute pulmonary embolism. CONSULTATIONS: None. HOSPITAL COURSE: The patient is a pleasant 43-year-old male with longstanding history of severe dilated cardiomyopathy with last EF estimated at 10%, status post AICD placement several months ago, who presented with worsening shortness of breath. The patient reports that he had been out of his Lasix for 4 days, and could not seem to get it refilled either by the pharmacy or his PCP. He denied any chest pain, nausea, or vomiting. He denied any orthopnea, although did experience some weight gain and pedal edema. The patient was admitted with acute systolic congestive heart failure exacerbation. He underwent IV diuresis, along with addition of metolazone, and diuresed well. He is back to his baseline. The patient does tell me that he did have some bleeding hemorrhoids about a month ago, that he did not seek treatment for. His iron and B12 were both low. He reports no recent bleeding. This morning, he has ambulated around his room without difficulty. He denies any chest pain or shortness of breath at this time. He has good appetite. No nausea or vomiting. PHYSICAL EXAMINATION: VITAL SIGNS: Blood pressure 106/66, O2 saturation 99% on room air, temperature is 98.8, and pulse is 82. GENERAL: The patient is awake and alert, sitting up in a chair. No respiratory distress. HEENT: Atraumatic and normocephalic. Eye movements intact. NECK: Supple. No JVD. No carotid bruits. Trachea is midline. RESPIRATORY: Regular respiratory rate and pattern, clear to auscultation bilaterally this morning, no crackles, rhonchi, or wheezes. CARDIOVASCULAR: S1, S2. Regular rate and rhythm. No appreciable murmurs, rubs , or gallops. PERIPHERAL VASCULAR: No lower extremity pitting edema. +2 DP pulses bilaterally. MUSCULOSKELETAL: No joint effusion or swelling. NEUROLOGIC: Awake and alert. Cranial nerves 2 through 12 grossly intact. No focal deficit. SKIN: Normal and dry. No rashes or discolorations. CONDITION AT DISCHARGE: Stable. DISCHARGE MEDICATIONS: 1. Aspirin 81 mg daily. 2. Entresto one tablet p.o. b.i.d. 3. Spironolactone 25 mg tablet one tablet p.o. b.i.d. 4. Carvedilol 6.25 mg tablet one tablet p.o. b.i.d. 5. Digoxin 0.125 mg one tablet p.o. b.i.d. 6. Furosemide 40 mg tablet one tablet p.o. daily. New prescriptions are; 1. Metolazone 2.5 mg tablet one tablet p.o. p.r.n. weight gain or shortness of breath. 2. Ferrous sulfate 325 mg tablet one tablet p.o. b.i.d. 3. Vitamin B12 supplement 1000 mcg daily. DISCHARGE DISPOSITION: Home. PLAN: The patient is to see his primary care physician tomorrow. He already has an appointment. I have advised him to talk at length with her about his anemia and further workup, as well as repeat CBC. He has been counseled extensively also on compliance with his diuretic regimen. Clearly, given his advanced cardiomyopathy, he needs to be compliant with his medications in order to avoid repeat hospitalizations. Dr. Rinku Cuenca, his primary slat pickler, has referred the patient to [place] for consideration of heart transplant and/or left ventricular assist device. The patient understands the counseling that I have given him, all questions have been answered. He will continue follow up with Dr. Cuenca as well. Care discussed with Dr. Mena who agrees with plan as above. Job ID: [id number] [facility]
--- NOTE | 2018-07-11 15:27 | EKG ---
Test Reason : Blood Pressure : / mmHG Vent. Rate : 111 BPM Atrial Rate : 111 BPM P-R Int : 126 ms QRS Dur : 128 ms QT Int : 388 ms P-R-T Axes : 038 002 028 degrees QTc Int : 527 ms Atrial-sensed ventricular-paced rhythm No STEMI Abnormal ECG Confirmed by ROBBY Villarreal, ROJELIO ([id number]), web content editor FLORENTIN CRUZ ([id number] on 07/11/2018 3:26:44 PM Referred By: Confirmed By:ROJELIO BUSTAMANTE M.D.
== END 2018-07-05 10:29 | disposition home or self-care (01) ==
LOC: ERS 23:14 → 2SW 07-04 04:15
PROVIDERS: ADMIT Internal Medicine; ATTEND Internal Medicine
DX: I13.0 Hypertensive heart and chronic kidney disease with heart failure and stage 1 through stage 4 chronic kidney disease, or unspecified chronic kidney disease (principal); N18.9 Chronic kidney disease, unspecified; I50.23 Acute on chronic systolic (congestive) heart failure; I42.0 Dilated cardiomyopathy; I44.7 Left bundle-branch block, unspecified; D63.1 Anemia in chronic kidney disease; Z95.810 Presence of automatic (implantable) cardiac defibrillator; Z87.891 Personal history of nicotine dependence; Z79.82 Long term (current) use of aspirin; Z79.899 Other long term (current) drug therapy; Z98.890 Other specified postprocedural states
CPT/HCPCS: 36415; 71045; 71275; 80048; 80053; 80162; 81003; 81015; 82330; 82553; 82607; 82746; 82803; 83540; 83550; 83690; 83880; 84484; 85025; 85379; 87040; 87086; 87804; 93005; 94640; 96374; 96376; G0378; J1940; Q9966

== ENCOUNTER 2018-10-20 09:35 | Outpatient (CLI) | payer OTHER ==
--- NOTE | 2018-10-20 10:42 | BD ---
DEXA BONE DENSITOMETRY: (Dual energy x-ray absorptiometry) DATE: 10/20/2018 HISTORY: 43-year old white male for "encounter for other preprocedural examination" osteoporosis screening. weight: 196 lbs height: 68 in. COMPARISON: None available. FINDINGS: The bone mineral density (BMD) is given in grams per square centimeter (g/cm2): LUMBAR SPINE: BMD (g/cm^2) T score Z score L1: 1.186 1.0 1.2 L2: 1.284 1.7 1.9 L3: 1.281 1.6 1.8 L4: 1.214 1.1 1.3 Total: 1.239 1.3 1.5 RIGHT HIP: BMD (g/cm^2) T score Z score Femoral neck: 0.934 0.0 0.6 Total: 1.133 0.7 0.9 LEFT HIP: BMD (g/cm^2) T score Z score Femoral neck: 0.926 0.0 0.6 Total: 1.129 0.6 0.9 IMPRESSION: 1.) The mean bone mineral density of the lumbar spine is normal. Fracture risk is not increased. 2) The bone mineral density of the femoral neck is normal. Fracture risk is not increased.
== END 2018-10-20 09:36 | disposition home or self-care (01) ==
LOC: BICMAMMO 09:35
PROVIDERS: ATTEND Family Medicine
DX: Z01.818 Encounter for other preprocedural examination (principal); Z13.820 Encounter for screening for osteoporosis; I50.9 Heart failure, unspecified
CPT/HCPCS: 77080

== ENCOUNTER 2019-01-03 22:35 | Emergency (ER) | payer OTHER ==
[2019-01-03 23:43] LABS: #Eosinphils 0.1 thou/uL (0.0-0.7); #Lymphocytes 0.8 thou/uL (1.20-3.40); #Monocytes 0.4 thou/uL (0.11-0.59); #Neutrophils 3.7 thou/uL (1.40-6.50); %Basophils 0.6 % (0.0-1.0); %Eosinophils 1.6 % (0.0-10.0); %Lymphocytes 16.8 % (21.0-51.0); %Monocytes 7.2 % (0.0-10.0); %Neutrophils 73.9 % (42.0-75.0); Hemoglobin 9.3 g/dL (14.0-18.0); Mean Corpuscular HGB CONC 32.2 g/dL (32.0-36.0); Mean Platelet Volume 8.4 fL (7.4-10.4); Platelet Count 142 thou/uL (130-400); RBC Distribution Width 15.7 % (11.5-14.5); Red Blood Cell (RBC) Count 3.22 mill/uL (4.70-6.10)
[2019-01-03 23:49] LABS: INR-International Normal Ratio 3.2; PTT 43.7 SEC (22.9-36.1); Prothrombin Time 32.7 SEC (12.0-14.7)
--- NOTE | 2019-01-03 23:51 | CT ---
CT Brain WO Con HISTORY: Left-sided headache. COMPARISON: None. FINDINGS: The ventricular and cisternal system is within normal limits. There are no signs of intrace rebral hemorrhage or extra-axial fluid collections. No evidence for subarachnoid blood. Examination of the pituitary is limited on this type of study. The pituitary appears slightly enlarge d. I would suggest consideration for MRI for better assessment of this finding. The mastoid air cells and visualized sinuses are clear. IMPRESSION: 1. No acute intracranial abnormalities. 2. Possible pituitary mass. MRI on a nonemergent basis is recommended.
[2019-01-04 00:06] LABS: ALT (SGPT) 16 U/L (8-55); AST (SGOT) 15 U/L (5-34); Albumin 3.4 g/dL (3.5-5.0); Alkaline Phosphatase 79 U/L (40-150); Anion Gap 11 mmol/L (10-20); BUN (Urea Nitrogen) 17 mg/dL (8.9-20.6); Bilirubin, Total 0.3 mg/dL (0.2-1.2); Calc. Creatinine Clearance 0 mL/min (70-130); Calcium 8.5 mg/dL (7.8-10.44); Carbon Dioxide 27 mmol/L (22-29); Chloride 107 mmol/L (98-107); Estimated GFR-MDRD 59; Globulin 3.4 g/dL (2.4-3.5); Glucose 95 mg/dL (70-105); Potassium 3.2 mmol/L (3.5-5.1); Protein, Total 6.8 g/dL (6.0-8.3); Sodium 142 mmol/L (136-145)
[2019-01-04] MEDS ORDERED: Lidocaine 1% (PF) 30 ML VIAL ONE (00:29)
== END 2019-01-04 01:09 | disposition home or self-care (01) ==
LOC: ERS 22:35
DX: R51 Headache (principal); I11.0 Hypertensive heart disease with heart failure; I50.9 Heart failure, unspecified; Z87.891 Personal history of nicotine dependence; Z79.899 Other long term (current) drug therapy; Z79.82 Long term (current) use of aspirin; Z79.01 Long term (current) use of anticoagulants
CPT/HCPCS: 36415; 64461; 70450; 80053; 85025; 85610; 85730; J2001